=== PATIENT | male | born 1940 | race Native Hawaiian/Other Pacific Islander ===

== ENCOUNTER 2016-11-28 10:53 | Outpatient (CLI) | payer OTHER, BC ==
[~2016-11-28 10:53] MED LIST: ACID REDUCER M150 MG OR; ALBU90AE13 INH; ALLEGRA ALRG180 M1 PO; FLUTMIS6 INH; HYDR-3182 PO; LEVAQUIN500 MG OR; MEDROL DOSEPAK4 MG PO; MOXI400T3 PO; PREVACID30 MG OR; SALINE NASAL S0.651; VESICARE5 MG OR
== END 2016-11-28 20:11 | disposition home or self-care (01) ==
LOC: LAB 10:53
DX: J34.89 Other specified disorders of nose and nasal sinuses (principal)
CPT/HCPCS: 87070; 87077; 87185; 87186; 87205

== ENCOUNTER 2017-11-05 11:36 | Outpatient (CLI) | payer OTHER, BC | END 2017-11-05 19:08 | disposition home or self-care (01) | LOC: LABW 11:36 | DX: N39.0 Urinary tract infection, site not specified (principal) | CPT/HCPCS: 87088 ==

== ENCOUNTER 2018-02-27 10:41 | Outpatient (CLI) | payer OTHER, BC ==
[2018-02-27 11:47] LABS: POTASSIUM 4.1 mmol/L (3.6-5.2)
[2018-02-27 11:51] LABS: PLATELET COUNT 182 K/uL (142-355)
== END 2018-02-27 22:28 | disposition home or self-care (01) ==
LOC: LABW 10:41
PROVIDERS: Dermatology Procedural Dermatology
DX: Z79.899 Other long term (current) drug therapy (principal); Z51.81 Encounter for therapeutic drug level monitoring; R53.83 Other fatigue
CPT/HCPCS: 36415; 80053; 80074; 85027; 86480

== ENCOUNTER 2019-07-27 15:30 | Outpatient (CLI) | payer OTHER, BC ==
[2019-07-27 16:27] LABS: PLATELET COUNT 179 K/uL (142-355)
[2019-07-27 16:29] LABS: POTASSIUM 4.1 mmol/L (3.6-5.2)
== END 2019-07-27 19:43 | disposition home or self-care (01) ==
LOC: LABW 15:30
PROVIDERS: Internal Medicine
DX: J44.9 Chronic obstructive pulmonary disease, unspecified (principal); Z12.5 Encounter for screening for malignant neoplasm of prostate; Z79.899 Other long term (current) drug therapy
CPT/HCPCS: 36415; 80053; 80061; 84153; 84439; 84443; 85027

== ENCOUNTER 2020-06-07 10:39 | Emergency (ER) | payer OTHER, BC ==
[~2020-06-07] VITALS: Ht 170.2 cm; Wt 79.4 kg
[2020-06-07 10:44] VITALS: TEMP 98.5
[2020-06-07 12:24] VITALS: BP 140/78
== END 2020-06-07 12:24 | disposition home or self-care (01) ==
LOC: ED 10:39
PROC: 0HQEXZZ Repair Left Lower Arm Skin, External Approach (ICD-10-PCS; principal; 2020-06-07)
DX: S51.812A Laceration without foreign body of left forearm, initial encounter (principal); W29.8XXA Contact with other powered hand tools and household machinery, initial encounter; Y92.89 Other specified places as the place of occurrence of the external cause
CPT/HCPCS: 90471; 90715; 99283

== ENCOUNTER 2021-02-16 10:47 | Outpatient (CLI) | payer OTHER, BC | END 2021-02-16 19:38 | disposition home or self-care (01) | LOC: RAD 10:47 | PROVIDERS: ATTEND Physician Assistant | DX: M25.562 Pain in left knee (principal) ==

== ENCOUNTER 2021-03-08 11:35 | Outpatient (CLI) | payer OTHER, BC | END 2021-03-08 21:04 | disposition home or self-care (01) | LOC: RAD 11:35 | PROVIDERS: ATTEND Nurse Practitioner Family | DX: M06.4 Inflammatory polyarthropathy (principal); M25.511 Pain in right shoulder; M25.512 Pain in left shoulder; M25.552 Pain in left hip; M54.5 Low back pain ==

== ENCOUNTER 2022-06-04 10:58 | Outpatient (CLI) | payer OTHER, BC | END 2022-06-04 18:58 | disposition home or self-care (01) | LOC: RAD 10:58 | PROVIDERS: ATTEND Nurse Practitioner Family | DX: E55.9 Vitamin D deficiency, unspecified (principal); E56.8 Deficiency of other vitamins; M06.4 Inflammatory polyarthropathy; M85.89 Other specified disorders of bone density and structure, multiple sites; Z79.899 Other long term (current) drug therapy ==

== ENCOUNTER 2023-04-03 14:25 | Outpatient (CLI) | payer OTHER, BC ==
[2023-04-03 14:43] LABS: PLATELET COUNT 185 K/uL (142-355)
[2023-04-03 14:49] LABS: POTASSIUM 3.8 mmol/L (3.6-5.2)
== END 2023-04-03 19:23 | disposition home or self-care (01) ==
LOC: LABW 14:25
PROVIDERS: ATTEND Dermatology Procedural Dermatology
DX: Z79.899 Other long term (current) drug therapy (principal); B15.9 Hepatitis A without hepatic coma
CPT/HCPCS: 36415; 80053; 80074; 85027

== ENCOUNTER 2023-12-12 15:19 | Outpatient (CLI) | payer OTHER, BC ==
[2023-12-12 16:07] LABS: PLATELET COUNT 153 K/uL (142-355)
== END 2023-12-12 19:34 | disposition home or self-care (01) ==
LOC: LABW 15:19
PROVIDERS: ATTEND Internal Medicine Medical Oncology
DX: D72.818 Other decreased white blood cell count (principal); D69.6 Thrombocytopenia, unspecified; D50.8 Other iron deficiency anemias
CPT/HCPCS: 36415; 80053; 82607; 82728; 83540; 83550; 85027